=== PATIENT | female | born 1990 | race Asian ===

== ENCOUNTER → 2022-01-13 | Outpatient (CLI) | payer OTHER | LOC: M WHC 13:43 | PROVIDERS: ATTEND Obstetrics & Gynecology | DX: D25.2 Subserosal leiomyoma of uterus (principal); D25.1 Intramural leiomyoma of uterus ==

== ENCOUNTER 2024-03-25 18:12 | Emergency (ER) | payer OTHER ==
[~2024-03-25] VITALS: Ht 157.5 cm; Wt 46.7 kg
[2024-03-25 18:13] VITALS: BP 124/73; TEMP 97.8; O2SAT 99
== END 2024-03-25 19:33 | disposition home or self-care (01) ==
LOC: M ED 18:12
DX: K03.81 Cracked tooth (principal)

== ENCOUNTER → 2024-06-29 | Outpatient (CLI) | payer MEDICAID, OTHER, SELFPAY ==
[2024-06-29 18:18] LABS: HEMATOCRIT 35.4 % (36.0-47.0); HEMOGLOBIN 12.2 g/dl (12.0-15.5); MEAN CORPUSCULAR HEMOGLOBIN 29.6 pg (27.0-33.0); MEAN CORPUSCULAR HGB CONC 34.5 g/dl (32.0-36.5); MEAN CORPUSCULAR VOLUME 85.9 fl (80.0-96.0); PLATELET COUNT, AUTOMATED 263 10^3/uL (150-450); RED BLOOD COUNT 4.12 10^6/uL (4.00-5.40)
[2024-06-29 19:19] LABS: HIV 1&2 SCREEN NEGATIVE (NEGATIVE)
[2024-06-29 19:29] LABS: HEPATITIS C VIRUS ABY INDEX < 0.02 INDEX (<0.8)
[2024-06-29 20:30] LABS: GC DNA AMPLIFICATION NEGATIVE (NEGATIVE)
== END ==
LOC: M PLALAB 15:58
PROVIDERS: ATTEND Advanced Practice Midwife
DX: Z34.81 Encounter for supervision of other normal pregnancy, first trimester (principal)

== ENCOUNTER → 2024-07-20 | Outpatient (REF) | payer OTHER, MEDICAID | LOC: M PLALAB 14:24 | PROVIDERS: ATTEND Nurse Practitioner Family | DX: Z34.82 Encounter for supervision of other normal pregnancy, second trimester (principal) ==

== ENCOUNTER → 2024-08-29 | Outpatient (CLI) | payer OTHER | LOC: M WHC 13:58 | PROVIDERS: ATTEND Nurse Practitioner Family | DX: Z34.82 Encounter for supervision of other normal pregnancy, second trimester (principal); Z3A.20 20 weeks gestation of pregnancy ==

== ENCOUNTER → 2024-10-17 | Outpatient (CLI) | payer OTHER ==
[2024-10-17 17:24] LABS: HEMATOCRIT 32.9 % (36.0-47.0); HEMOGLOBIN 10.9 g/dl (12.0-15.5); MEAN CORPUSCULAR HEMOGLOBIN 30.6 pg (27.0-33.0); MEAN CORPUSCULAR HGB CONC 33.1 g/dl (32.0-36.5); MEAN CORPUSCULAR VOLUME 92.4 fl (80.0-96.0); PLATELET COUNT, AUTOMATED 266 10^3/uL (150-450); RED BLOOD COUNT 3.56 10^6/uL (4.00-5.40); WHITE BLOOD COUNT 11.2 10^3/uL (4.0-10.0)
[2024-10-17 18:40] LABS: Trichomonas vaginalis (AMP) NOT DETECTED (NEGATIVE)
[2024-10-17 18:55] LABS: GLUCOSE CHALLENGE TEST 1 HOUR 100 MG/DL (LESS THAN 140)
[2024-10-17 19:04] LABS: GC DNA AMPLIFICATION NEGATIVE (NEGATIVE)
[2024-10-17 19:25] LABS: HIV 1&2 SCREEN NEGATIVE (NEGATIVE)
[2024-10-17 19:33] LABS: HEPATITIS C VIRUS ABY INDEX 0.12 INDEX (<0.8)
== END ==
LOC: M PLALAB 14:21
PROVIDERS: ATTEND Nurse Practitioner Family
DX: Z34.80 Encounter for supervision of other normal pregnancy, unspecified trimester (principal)

== ENCOUNTER → 2024-12-19 | Outpatient (REF) | payer OTHER, MEDICAID | LOC: M PLALAB 10:11 | PROVIDERS: ATTEND Nurse Practitioner Family | DX: Z36.85 Encounter for antenatal screening for Streptococcus B (principal); Z3A.36 36 weeks gestation of pregnancy ==

== ENCOUNTER 2025-01-01 15:48 | Outpatient (CLI) | payer OTHER, MEDICAID ==
[~2025-01-01] VITALS: Ht 157.5 cm; Wt 61.1 kg
[2025-01-01] MEDS ORDERED: PRENTAB9 PO (16:14)
[2025-01-01] MEDS ORDERED: IRON65TA2 PO (16:14)
[2025-01-01] MEDS ORDERED: HOME MED LIST COMPLETE! XX SCH (16:15)
[2025-01-01 16:23] VITALS: BP 108/61; O2SAT 98
[2025-01-01 18:41] VITALS: BP 117/74; O2SAT 98
== END 2025-01-01 19:46 | disposition home or self-care (01) ==
LOC: M LDO 15:48
PROVIDERS: ATTEND Advanced Practice Midwife
DX: O47.1 False labor at or after 37 completed weeks of gestation (principal); O26.893 Other specified pregnancy related conditions, third trimester; O99.013 Anemia complicating pregnancy, third trimester; N89.8 Other specified noninflammatory disorders of vagina; D50.9 Iron deficiency anemia, unspecified; R22.33 Localized swelling, mass and lump, upper limb, bilateral; Z3A.38 38 weeks gestation of pregnancy
CPT/HCPCS: 59025; G0463

== ENCOUNTER → 2025-08-03 | Outpatient (REF) | payer OTHER, MEDICAID ==
[~2025-08-03] MED LIST: IBUP80TA PO; IRON65TA2 PO; PRENTAB9 PO
== END ==
LOC: M PLALAB 10:03
PROVIDERS: ATTEND Obstetrics & Gynecology
DX: Z12.4 Encounter for screening for malignant neoplasm of cervix (principal); Z53.9 Procedure and treatment not carried out, unspecified reason